=== PATIENT | female | born 1980 | race Caucasian/White ===

== ENCOUNTER 2020-03-02 15:51 | Emergency (ER) | payer MEDICAID, SELFPAY ==
[~2020-03-02] VITALS: Ht 162.6 cm; Wt 127.0 kg
[2020-03-02 15:52] VITALS: Ht 162.6 cm; Wt 127.0 kg
[2020-03-02 16:53] VITALS: BP 140/78
== END 2020-03-02 16:53 | disposition home or self-care (01) ==
LOC: ED 15:51
DX: J02.9 Acute pharyngitis, unspecified (principal); I10 Essential (primary) hypertension; E11.9 Type 2 diabetes mellitus without complications; Z20.828 Contact with and (suspected) exposure to other viral communicable diseases
CPT/HCPCS: U0003-CS